=== PATIENT | female | born 1990 | race Caucasian/White ===

== ENCOUNTER 2024-04-05 22:03 | Inpatient (IN) | payer BC, SELFPAY ==
[2024-04-05] VITALS (11 sets, daily range): BP systolic 107–125; BP diastolic 61–76; PULSE 69–91; O2SAT 96–99; BMI 25.5
[2024-04-05] MEDS: LACTATED RINGERS 500 ML 999 ML IV CONT (22:45)
[2024-04-05 22:59] LABS: Basophils Percent Auto 0.4 % (0.2-1.2); Eosinophils Absolute Auto 0.1 K/mm3 (0-0.3); Eosinophils Percent Auto 1.2 % (0-4.4); Immature Granulocyte Absolute 0.04 K/mm3 (0.00-0.031); Immature Granulocyte Percent A 0.4 % (0-0.5); Immature Platelet Fraction Pct 5.3 % (0.9-11.2); Lymphocytes Percent Auto 15.9 % (18.3-44.2); Mean Corpuscular HGB Conc 34.2 g/dl (32-36); Mean Corpuscular Hemoglobin 31.5 pg (26-34); Mean Platelet Volume 10.7 fl (7.4-10.4); Monocytes Absolute Auto 0.5 K/mm3 (0.1-0.6); Monocytes Percent Auto 5.5 % (2.6-8.5); Neutrophils Absolute Auto 7.2 K/mm3 (1.3-6.7); Neutrophils Percent Auto 76.6 % (45.5-73.1); Platelet Count Result 140 k/mm3 (150-375); Red Blood Count 4.13 M/mm3 (4.2-5.4); Red Cell Distribution Width 12.9 % (11.5-14.5); White Blood Count 9.4 K/mm3 (4.5-10.0)
--- NOTE | 2024-04-05 23:01 | LDADM ---
This patient, Dee Singleton, was admitted to Labor/Delivery/Recovery 105 on 04/05/24 at 22:03. Plans for labor, pain management and were discussed with patient. Patient/family oriented to hospital policies and general routines including ID bracelet, bed and alarms, visiting hours, pain management, procedures, bathroom and other care routines, personal items, smoking policy, room service/diet and guest tray routines, infant security routines, and visiting hours. Patient/Family are encouraged to report perceived risks to care and to ask questions if they do not understand what they are told or what they should do. See OBIX for further documentation.
[2024-04-05 23:09] LABS: INR 0.9; Prothrombin Time 12.1 Seconds (11.1-14.7)
[2024-04-05 23:10] LABS: Partial Thromboplastin Time 26.2 Seconds (22.3-36.8)
[2024-04-05 23:49] LABS: HIV 1/2 Ab P24 Ag Result Negative (Negative)
[2024-04-06] VITALS (34 sets, daily range): BP systolic 88–118; BP diastolic 48–97; PULSE 63–99; RESP 16–18; TEMP 36.6–37.5; O2SAT 98–100
[2024-04-06] MEDS: OXYTOCIN 30 UNITS/NS 500 ML 30 UNITS/500 ML BAG 999 UNITS IV CONT (00:58)
--- NOTE | 2024-04-06 01:05 | WPDOBADMIT ---
Obstetrics - Admit Note Admission Note: record reviewed. No pertinent additions to the history and/or any subsequent changes in the physical findings that are not consistent with the expected course of the were found. Additions to the history and/or subsequent changes in the physical findings follow. None.
--- NOTE | 2024-04-06 01:05 | PM.OBPRVD ---
OB - Vaginal Delivery Note Procedure Delivery date: 04/06/24 Events: Other (History of DVT prior ) Induction method: None Delivery monitor: External FHT and External Uterine Route of delivery: Episiotomy description: None Laceration Description: None Specimen: No Quantitative Blood Loss (ml): 100 Anesthesia type: Epidural Disposition: Floor Complications: No immediate complications Baby Date of : 04/06/24 Weeks of gestation at delivery: 39 gender: Female presentation: vertex position: Right Occiput Anterior Placenta delivery description: Spontaneous Cord Vessel Description: 3 Vessels and Delayed Cord Clamping score one minute: 9 score five minutes: 9
--- NOTE | 2024-04-06 01:08 | PM.OBDSVD ---
DS: Admitting Diagnosis Discharge Date 04/07/24 <Payam Mariano MD - Last Filed: 04/07/24 10:01> Admitting Diagnosis IUP 39 1/7 Hx DVT prior SROM <Dipti Tovar MD - Last Filed: 04/22/24 09:38> DS: Discharge Diagnosis Discharge Diagnosis (1) (normal spontaneous vaginal delivery): Code(s): O80 - Encounter for full-term uncomplicated delivery <Dipti Tovar MD - Last Filed: 04/22/24 09:38> Status: Acute <Dipti Tovar MD - Last Filed: 04/22/24 09:38> OB - DS: Summary OB Procedures : Ultrasound <Dipti Tovar MD - Last Filed: 04/22/24 09:38> OB Procedures Intrapartum: Spontaneous Vag Delivery <Dipti Tovar MD - Last Filed: 04/22/24 09:38> OB Procedures: : None <Dipti Tovar MD - Last Filed: 04/22/24 09:38> Peripartum Data Infant Delivery Method: Natural Vaginal <Dipti Tovar MD - Last Filed: 04/22/24 09:38> Laceration Description: None <Dipti Tovar MD - Last Filed: 04/22/24 09:38> Episiotomy description: None <Dipti Tovar MD - Last Filed: 04/22/24 09:38> complications: none <Dipti Tovar MD - Last Filed: 04/22/24 09:38> Status at Discharge Functional status at discharge: independent ambulation <Dipti Tovar MD - Last Filed: 04/22/24 09:38> Overall status at discharge: patient is progressing back to baseline <Dipti Tovar MD - Last Filed: 04/22/24 09:38> Time Spent with Patient Time attestation: Total time spent providing and/or coordinating discharge services: <Dipti Tovar MD - Last Filed: 04/22/24 09:38> DS: Data Data Completed and Pending Labs on day of discharge: Labs from last 24 hours 04/05/24 22:45 WBC 9.4 RBC 4.13 L Hgb 13.0 Hct 38.0 MCV 92.0 MCH 31.5 MCHC 34.2 RDW 12.9 Plt Count 140 L MPV 10.7 H Immature Gran % (Auto) 0.4 Neut % (Auto) 76.6 H Lymph % (Auto) 15.9 L [place] % (Auto) 5.5 Eos % (Auto) 1.2 Baso % (Auto) 0.4 Lymph # (Auto) 1.50 [place] # (Auto) 0.5 Eos # (Auto) 0.1 Baso # (Auto) 0.0 Abs Immat Gran (auto) 0.04 H Absolute Neuts (auto) 7.2 H Absolute Nucleated RBC 0.000 Nucleated RBC % 0.0 % Immature Plt Fraction 5.3 PT 12.1 INR 0.9 APTT 26.2 RPR Pending HIV 1&2 Ab/P24 Ag 4thGn Negative Blood Type AB Positive Antibody Screen Negative <Dipti Tovar MD - Last Filed: 04/22/24 09:38> Discharge Plan Discharge Attending physician on discharge: Payam Mariano <Dipti Tovar MD - Last Filed: 04/22/24 09:38> Payam Mariano <Payam Mariano MD - Last Filed: 04/07/24 10:01> Consulting providers: Dipti Tovar <Dipti Tovar MD - Last Filed: 04/22/24 09:38> Discharging Clinician: Payam Mariano <Dipti Tovar MD - Last Filed: 04/22/24 09:38> Payam Mariano <Payam Mariano MD - Last Filed: 04/07/24 10:01> Anticipated Discharge Date/Time: 04/07/24 01:11 <Dipti Tovar MD - Last Filed: 04/22/24 09:38> Patient Disposition: Home, Self-Care <Dipti Tovar MD - Last Filed: 04/22/24 09:38> Activity: pelvic rest <Dipti Tovar MD - Last Filed: 04/22/24 09:38> pelvic rest <Payam Mariano MD - Last Filed: 04/07/24 10:01> Diet: regular <Dipti Tovar MD - Last Filed: 04/22/24 09:38> regular <Payam Mariano MD - Last Filed: 04/07/24 10:01> Discharge Instructions: Call or return if temperature above 100.4? F, increased abdominal pain, increased vaginal bleeding or any new problems. Education: Mom and Baby Guide and Preeclampsia Handout Given to: Mother Follow-Up: Call your delivering provider's office for an appointment to be seen in: 6 Weeks Mom and baby should come to the [facility] for the postpa
[2024-04-06] MEDS: OXYTOCIN 30 UNITS/NS 500 ML 30 UNITS/500 ML BAG 125 UNITS IV CONT (01:34)
[2024-04-06] MEDS: BENZOCAINE 20% AER SPR (*SP) 56 GM CAN 1 SPRAY TOPICAL (03:31)
[2024-04-06] MEDS: WITCH HAZEL 40 PADS 1 PAD TOPICAL (03:31)
--- NOTE | 2024-04-06 03:40 | OBPPTRN ---
Patient transferred to post room #[id number] (wheelchair). Support person present. Oriented to unit, room, information board, rooming in, admission packet and security measures. Patient verbalizes understanding.
[2024-04-06] MEDS: ENOXAPARIN 40 MG/0.4 ML SYRINGE SUB-Q (09:22)
[2024-04-06] MEDS: MULTIVIT/MIN/PREN/FOL AC/IRON TABLET 1 TAB PO (09:22)
[2024-04-06 16:12] LABS: Estimated CRCL calculation 74 ml/min; Estimated Glomerular Filt Rate > 60
[2024-04-06] MEDS: IBUPROFEN 600 MG TABLET PO (18:51)
[2024-04-07 05:58] LABS: Hematocrit 37.9 % (37.0-47.0); Hemoglobin 12.2 g/dL (12.0-15.0); Mean Corpuscular HGB Conc 32.2 g/dl (32-36); Mean Corpuscular Hemoglobin 31.4 pg (26-34); Mean Corpuscular Volume 97.4 fl (80-100); Mean Platelet Volume 10.6 fl (7.4-10.4); Platelet Count Result 120 k/mm3 (150-375); Red Blood Count 3.89 M/mm3 (4.2-5.4); Red Cell Distribution Width 13.2 % (11.5-14.5)
[2024-04-07 09:20] VITALS: BP 114/66; PULSE 73; RESP 16; TEMP 36.7
--- NOTE | 2024-04-07 09:59 | PM.OBPNVD ---
OB - PN: Subj Subjective Date/time seen: 04/07/24 09:59 Narrative: Pain OK. Would like to go home. OB - PN: Obj Data Labs 04/07/24 05:13 04/05/24 22:45 Labs: Laboratory Results - last 24 hr 04/05/24 04/07/24 22:45 05:13 WBC 11.0 H RBC 3.89 L Hgb 12.2 Hct 37.9 MCV 97.4 D MCH 31.4 MCHC 32.2 RDW 13.2 Plt Count 120 L MPV 10.6 H Creatinine 0.90 Estim Creat Clear Calc 74 Estimated GFR > 60 OB - PN A/P Plan Comments: A: PPD#1, doing well. P: Home to f/u 6 weeks. Continue daily Lovenox for 6 weeks. Exam Psych: Other: AVSS ABD soft, nontender, fundus firm EXT nontender
[2024-04-07] MEDS: ENOXAPARIN 40 MG/0.4 ML SYRINGE SUB-Q (10:06)
[2024-04-07] MEDS: MULTIVIT/MIN/PREN/FOL AC/IRON TABLET 1 TAB PO (10:06)
--- NOTE | 2024-04-07 10:30 | PC.NURSE ---
Patient received instruction on viewing the discharge video Mother & Baby Care, The First Two Weeks . Patient was given the opportunity and encouraged to ask questions. Patient verbalized understanding of information shared and has been given the mother/baby guide for home reference.
[2024-04-08 11:50] LABS: Rapid Plasma Reagin Non-Reactive (NonReactive)
== END 2024-04-07 14:15 | disposition home or self-care (01) | DRG 807 ==
LOC: ANHLDR 04-06 01:12 → ANHOB2 04-06 03:41
PROVIDERS: Obstetrics & Gynecology Gynecology; Admitting Provider Obstetrics & Gynecology; PCP Family Medicine; Visit Provider Obstetrics & Gynecology
DX: O62.3 Precipitate labor (principal); Z37.0 Single live birth; Z3A.39 39 weeks gestation of pregnancy; Z86.718 Personal history of other venous thrombosis and embolism
CPT/HCPCS: 36415; 82565; 84112; 85025; 85027; 85055; 85610; 85730; 86592; 86703; 86850; 86900; 86901; A9270; G0432; J1650; J2590; J2795; J7120

== ENCOUNTER 2024-09-18 13:37 | Outpatient (CLI) | payer BC, SELFPAY ==
--- NOTE | ~2024-09-18 | XR_ITS ---
XR hip LT 2V w AP pelvis Ordering provider: Tom Hernandez MD History: . ''GRINDING'' LEFT HIP X3MO, NO INJ, 5MO POST . Comparison: None. FINDINGS: BONES: No acute fracture or dislocation. Bone island seen in the right femoral neck. HIP JOINT SPACES: Normal. SACROILIAC JOINT SPACES/LUMBAR SPINE: The sacroiliac joint spaces are normal. Normal visualized lower lumbar spine. PUBIC SYMPHYSIS: Normal. SOFT TISSUES: Normal. IUD is seen in the uterus. IMPRESSION: No acute osseous abnormality pelvis and left hip. Reviewed, dictated and finalized at location A. [facility]
== END 2024-09-18 13:38 | disposition home or self-care (01) ==
PROVIDERS: PCP Internal Medicine; Visit Provider Internal Medicine
DX: M25.552 Pain in left hip (principal)
CPT/HCPCS: 73502